=== PATIENT | female | born 1940 | race Caucasian/White ===

== ENCOUNTER 2022-09-03 22:31 | Inpatient (IN) | payer OTHER ==
[2022-09-03 22:41] VITALS: BMI 17.2
[2022-09-03] MEDS ORDERED: DIPHTH,PERTUSS(ACELL),TET 0.5 ML DISP.SYRIN IM ONE (23:57)
[2022-09-04 00:41] LABS: BASO % 0.5 % (0-2.0); EOS % 0.3 % (0-4.5); HEMATOCRIT 39.9 % (32.4-45.2); HEMOGLOBIN 13.5 GM/dL (10.7-15.3); MCH 29.9 pg (25.7-33.7); MCHC 33.9 g/dl (32.0-36.0); MEAN CELL VOLUME 88.2 fl (80-96); MEAN PLT VOLUME 8.2 fl (7.5-11.1); MONO % 10.4 % (3.8-10.2); NEUT % 74.8 % (42.8-82.8); PLATELET COUNT 109 10^3/uL (134-434); RBC 4.53 M/mm3 (3.60-5.2); WHITE BLOOD COUNT 9.2 K/mm3 (4.0-10.0)
[2022-09-04 00:52] LABS: INR 1.08 (0.83-1.09); PROTHROMBIN TIME (PATIENT) 12.5 SEC (9.7-13.0)
[2022-09-04 00:54] LABS: ACTIVATED PTT 26.3 SECONDS (25.2-36.5)
[2022-09-04 01:01] LABS: POTASSIUM 4.4 mmol/L (3.5-5.1)
[2022-09-04 01:02] LABS: CALCIUM 8.6 mg/dL (8.5-10.1)
[2022-09-04 01:03] LABS: ALBUMIN 2.4 g/dl (3.4-5.0); BLOOD UREA NITROGEN 30.9 mg/dL (7-18)
[2022-09-04 01:06] LABS: CREATININE 1.2 mg/dL (0.55-1.3)
[2022-09-04 01:08] LABS: BILIRUBIN,TOTAL 0.4 mg/dL (0.2-1); TOT PROT 5.8 g/dl (6.4-8.2)
[2022-09-04] MEDS ORDERED: metoPROLOL SUCCINATE 25 MG TAB.SR.24H (FP) PO ONE ×3 (02:45→14:02)
[2022-09-04] MEDS ORDERED: DIPHTH,PERTUSS(ACELL),TET 0.5 ML DISP.SYRIN IM ONE (02:51)
[2022-09-04] MEDS ORDERED: ACETAMINOPHEN 1000 MG/100 ML BAG IVPB PRN (03:53)
[2022-09-04] MEDS ORDERED: DEXTROSE 5%-NORMAL SALINE 1,000 ML IV SCH (04:00)
[2022-09-04] MEDS ORDERED: ACETAMINOPHEN 325 MG TABLET (FP) ONE (08:14)
[2022-09-04 09:13] LABS: MAGNESIUM 1.8 mg/dL (1.8-2.4)
[2022-09-04 09:16] LABS: PHOSPHOROUS 3.4 mg/dL (2.5-4.9)
[2022-09-04] MEDS ORDERED: FUROSEMIDE 20 MG TABLET (FP) ONE (13:56)
[2022-09-04] MEDS: FUROSEMIDE 20 MG TABLET (FP) PO SCH (14:02)
[2022-09-04] MEDS: metoPROLOL SUCCINATE 25 MG TAB.SR.24H (FP) PO SCH (14:13)
[2022-09-04] MEDS: traZODone HCL 50 MG TABLET (FP) PO SCH (21:42)
[2022-09-04] MEDS ORDERED: QUEtiapine FUMARATE 25 MG TABLET PO SCH (22:00)
[2022-09-05] MEDS ORDERED: ACETAMINOPHEN 325 MG TABLET (FP) PO PRN (03:49)
[2022-09-05 08:02] LABS: BASO % 0.3 % (0-2.0); EOS % 1.8 % (0-4.5); HEMATOCRIT 37.4 % (32.4-45.2); HEMOGLOBIN 12.5 GM/dL (10.7-15.3); LYMPH % 33.8 % (8-40); MCH 29.8 pg (25.7-33.7); MCHC 33.3 g/dl (32.0-36.0); MEAN CELL VOLUME 89.4 fl (80-96); MEAN PLT VOLUME 8.6 fl (7.5-11.1); MONO % 12.3 % (3.8-10.2); NEUT % 51.8 % (42.8-82.8); PLATELET COUNT 101 10^3/uL (134-434); RBC 4.19 M/mm3 (3.60-5.2); RDW 14.8 % (11.6-15.6); WHITE BLOOD COUNT 5.4 K/mm3 (4.0-10.0)
[2022-09-05] MEDS: metoPROLOL SUCCINATE 25 MG TAB.SR.24H (FP) PO SCH (10:33)
[2022-09-05] MEDS: FUROSEMIDE 20 MG TABLET (FP) PO SCH (10:33)
[2022-09-05] MEDS: OLANZapine 5 MG TABLET PO SCH ×2 (14:52→21:35)
[2022-09-05] MEDS: traZODone HCL 50 MG TABLET (FP) PO SCH (21:35)
[2022-09-06 09:08] LABS: EPI CELLS 1 /uL (0-25.1); HYALINE CASTS 0 /uL (0-3.1); PH,URINE 6.5 (5.0-8.0); URINE APPEARANCE CLEAR; URINE BACTERIA 307 /uL (0-1359); URINE BILIRUBIN NEGATIVE (NEGATIVE); URINE COLOR YELLOW; URINE GLUCOSE (UA) NEGATIVE (NEGATIVE); URINE KETONE NEGATIVE (NEGATIVE); URINE LEUK ESTERASE 3+ (NEGATIVE); URINE NITRITE NEGATIVE (NEGATIVE); URINE PROTEIN TRACE (NEGATIVE); URINE RBC 66 /uL (0-23.9); URINE WBC 525 /uL (0-25.8)
[2022-09-06] MEDS ORDERED: ALPRAZolam 0.25 MG TABLET PO ONE ×2 (10:32→17:15)
[2022-09-06] MEDS: FUROSEMIDE 20 MG TABLET (FP) PO SCH (11:02)
[2022-09-06] MEDS: OLANZapine 5 MG TABLET PO SCH (11:02)
[2022-09-06] MEDS: metoPROLOL SUCCINATE 25 MG TAB.SR.24H (FP) PO SCH (11:02)
[2022-09-07] MEDS: traZODone HCL 50 MG TABLET (FP) PO SCH ×2 (00:21→22:45)
[2022-09-07] MEDS: OLANZapine 5 MG TABLET PO SCH ×3 (00:22→22:45)
[2022-09-07] MEDS: metoPROLOL SUCCINATE 25 MG TAB.SR.24H (FP) PO SCH (10:00)
[2022-09-07] MEDS: FUROSEMIDE 20 MG TABLET (FP) PO SCH (10:01)
[2022-09-07] MEDS: ASPIRIN 81 MG CHEWABLE TABLETS PO SCH (12:00)
[2022-09-07 13:18] LABS: POTASSIUM 3.8 mmol/L (3.5-5.1)
[2022-09-07 13:19] LABS: CALCIUM 8.3 mg/dL (8.5-10.1)
[2022-09-07 13:20] LABS: BLOOD UREA NITROGEN 25.3 mg/dL (7-18)
[2022-09-07 13:23] LABS: CREATININE 0.9 mg/dL (0.55-1.3)
[2022-09-08] MEDS: FUROSEMIDE 20 MG TABLET (FP) PO SCH (09:11)
[2022-09-08] MEDS: metoPROLOL SUCCINATE 25 MG TAB.SR.24H (FP) PO SCH (09:11)
[2022-09-08] MEDS: ASPIRIN 81 MG CHEWABLE TABLETS PO SCH (09:12)
[2022-09-08] MEDS: OLANZapine 5 MG TABLET PO SCH ×2 (09:12→23:03)
[2022-09-08] MEDS: traZODone HCL 50 MG TABLET (FP) PO SCH (23:04)
[2022-09-09] MEDS: ASPIRIN 81 MG CHEWABLE TABLETS PO SCH (09:27)
[2022-09-09] MEDS: FUROSEMIDE 20 MG TABLET (FP) PO SCH (09:27)
[2022-09-09] MEDS: OLANZapine 5 MG TABLET PO SCH ×2 (09:27→21:24)
[2022-09-09] MEDS: metoPROLOL SUCCINATE 25 MG TAB.SR.24H (FP) PO SCH (09:27)
[2022-09-09] MEDS: BACITRACIN ZINC 15 GM TUBE TOPICAL OINTMENT TP SCH (13:00)
[2022-09-09] MEDS: traZODone HCL 50 MG TABLET (FP) PO SCH (21:24)
[2022-09-10] MEDS: ASPIRIN 81 MG CHEWABLE TABLETS PO SCH (09:16)
[2022-09-10] MEDS: OLANZapine 5 MG TABLET PO SCH ×2 (09:17→21:07)
[2022-09-10] MEDS: FUROSEMIDE 20 MG TABLET (FP) PO SCH (09:17)
[2022-09-10] MEDS: metoPROLOL SUCCINATE 25 MG TAB.SR.24H (FP) PO SCH (09:17)
[2022-09-10] MEDS: BACITRACIN ZINC 15 GM TUBE TOPICAL OINTMENT TP SCH (09:18)
[2022-09-10] MEDS ORDERED: BACITRACIN ZINC 15 GM TUBE TOPICAL OINTMENT TP SCH (10:00)
[2022-09-10] MEDS ORDERED: MIRTAZAPINE 15 MG TABLET (FP) PO SCH (22:00)
[2022-09-10 22:21] VITALS: TEMP 98.2
[2022-09-11] MEDS: OLANZapine 5 MG TABLET PO SCH (10:30)
[2022-09-11] MEDS: metoPROLOL SUCCINATE 25 MG TAB.SR.24H (FP) PO SCH (10:30)
[2022-09-11] MEDS: FUROSEMIDE 20 MG TABLET (FP) PO SCH (10:31)
[2022-09-11] MEDS: ASPIRIN 81 MG CHEWABLE TABLETS PO SCH (10:31)
[2022-09-11] MEDS: BACITRACIN ZINC 15 GM TUBE TOPICAL OINTMENT TP SCH (10:37)
[2022-09-11 14:46] VITALS: BP 111/53; PULSE 102; RESP 16
== END 2022-09-11 16:48 | DRG 309 ==
LOC: JER 22:31 → INTOOBSV 09-04 01:43 → JERBED 09-04 01:43 → J4W 09-04 15:46 → OBSVTOIN 09-06 13:27
PROVIDERS: ADMIT Internal Medicine; ATTEND Internal Medicine
DX: I48.91 Unspecified atrial fibrillation (principal); E44.0 Moderate protein-calorie malnutrition; I50.22 Chronic systolic (congestive) heart failure; J98.11 Atelectasis; R64 Cachexia; Z68.1 Body mass index [BMI] 19.9 or less, adult; F03.90 Unspecified dementia, unspecified severity, without behavioral disturbance, psychotic disturbance, mood disturbance, and anxiety; E03.9 Hypothyroidism, unspecified; F32.9 Major depressive disorder, single episode, unspecified; D64.9 Anemia, unspecified; F41.9 Anxiety disorder, unspecified; R29.6 Repeated falls; I11.0 Hypertensive heart disease with heart failure; R91.8 Other nonspecific abnormal finding of lung field
CPT/HCPCS: 36415; 70450-TC; 70486-TC; 71045-TC-FY; 71250-TC; 72125-TC; 72170-TC-FY; 80048; 80053; 81003; 83735; 84100; 84439; 84443; 84484; 85025; 85610; 85730; 87086; 87186; 90715; 93005; 93010; 93306-TC; 97116-GP; 97161-GP; 99285-25; G0378